=== PATIENT | female | born 1985 | race Two or more races ===

== ENCOUNTER 2018-01-14 10:42 | Emergency (ER) | payer MEDICAID ==
[~2018-01-14] VITALS: Ht 160 cm; Wt 46.7 kg
[2018-01-14 10:54] VITALS: BP 125/87
--- NOTE | 2018-01-14 12:00 | Emergency Room Report ---
History of Present Illness General Chief Complaint: Vaginal Source: Patient Present Illness HPI This patient here for heavy vaginal bleeding. She had six weeks ago, first vag bleeding since then two weeks ago and continuing. There is no lightheadedness, no dizziness, no syncope. No abd pain other than typical menses occasional cramping. Not sexually active since. Allergies: Coded Allergies: No Known Allergies (Unverified , 01/14/18) Patient History Last Menstrual Period: 12/29/17 Nursing Documentation-[facility] Past Medical History: No History, Except For Hx Asthma: Yes Review of Systems Constitutional: Reports: no symptoms Eye: Reports: no symptoms ENT: Reports: no symptoms Respiratory: Reports: no symptoms Cardiovascular: Reports: no symptoms Gastrointestinal: Reports: no symptoms Genitourinary: Reports: vag bleed/dc Musculoskeletal: Reports: no symptoms Skin: Reports: no symptoms Psychiatric: Reports: no symptoms Neurological: Reports: no symptoms Endocrine: Reports: no symptoms Hematologic/Lymphatic: Reports: no symptoms Allergic: Reports: no symptoms All Other Systems: negative except mentioned in HPI Physical Exam Vital Signs Date Time Temp Pulse Resp B/P (MAP) Pulse Ox O2 Delivery O2 Flow Rate FiO2 01/14/18 10:47 97.9 61 18 125/87 98 Room Air Sp02 EP Interpretation: reviewed, normal General Appearance: normal inspection, well appearing, no apparent distress, alert, GCS 15, non-toxic Head: normocephalic, atraumatic Eyes: bilateral eye normal inspection, bilateral eye PERRL, bilateral eye EOMI ENT: normal ENT inspection, hearing grossly normal, normal pharynx, no angioedema, normal voice, moist mucus membranes Neck: normal inspection, full range of motion, supple, no meningismus, no bony tend Respiratory: normal inspection, lungs clear, normal breath sounds, no rhonchi, no respiratory distress, no retraction, no accessory muscle use, no wheezing Cardiovascular #1: normal inspection, regular rate, rhythm, no edema Gastrointestinal: normal inspection, normal bowel sounds, non tender, soft, no mass, non-distended Musculoskeletal: gait/station normal, normal range of motion Neurologic: normal inspection, alert, oriented x3, responsive, motor strength/ tone normal Psychiatric: normal inspection, judgement/insight normal, memory normal Suicide Risk Assessment: Suicidal Ideation: No Had intent to initiate attempt: No Pt's plan for suicide attempt: No Has means to complete attempt: No Skin: normal inspection, normal color, no rash, warm/dry Medical Decision Making Diagnostic Impression: Primary Impression: Vaginal bleeding ER Course Hemodynamically stable; nothing further to do; blood test offered pt. doesn't want. Confirmed that patient not sexually active since . Last Vital Signs Date Time Temp Pulse Resp B/P (MAP) Pulse Ox O2 Delivery O2 Flow Rate FiO2 01/14/18 10:54 97.9 18 125/87 98 Room Air 01/14/18 10:47 61 Status: improved Disposition: HOME, SELF-CARE Condition: Stable Patient Instructions: Menorrhagia, [id number] Major Lim M.D. Jan 14, 2018 12:00
== END 2018-01-14 12:17 | disposition home or self-care (01) ==
LOC: EDBD → EMR 11:55 → MERGE 11:55 → EMR 12:17
DX: N93.9 Abnormal uterine and vaginal bleeding, unspecified (principal); J45.909 Unspecified asthma, uncomplicated
CPT/HCPCS: 99282